=== PATIENT | male | born 1985 | race American Indian/Alaskan Native ===

== ENCOUNTER 2017-06-09 22:33 | Emergency (ER) | payer SELFPAY ==
[2017-06-10] MEDS ORDERED: TORADOL IM ONE (00:01)
--- NOTE | 2017-06-10 00:01 | Emergency Department Report ---
HPI - General Chief Complaint: Dental/Oral Time Seen by Provider: 06/09/17 23:30 - HPI HPI: Patient here for toothache to his right upper back tooth 10 out of 10. He said this is been going on for 2 days. He said he called his dentist and he has an appointment for 06/24/2017. Patient said pain is 10 out of 10 and throbbing in and he's tried Tylenol 3 and Motrin which did not help his pain. He said his upper right back tooth has a cavity and a whole and he just couldn't take the pain anymore so he drove himself to the emergency room. Patient with blood pressure of 155/101 and he denies any history of 5 blood pressure. Denies any sore throat or drooling. Denies any nasal congestion, cough or shortness of breath. Denies any fever or chills. ED Past Medical Hx - Past Medical History Previous Medical History?: No - Surgical History Past Surgical History?: No - Family History Family history: hypertension - Social History Smoking Status: Never Smoker Substance Use Type: None Other Social History: single - Medications Home Medications: Home Medications Medication Instructions Recorded Confirmed Last Taken Type predniSONE [Deltasone] 40 mg PO QDAY #8 tab 12/15/15 Unknown Rx Clindamycin [Clindamycin CAP] 300 mg PO Q8H #30 cap 06/10/17 Unknown Rx HYDROcodone/APAP 5-325 [[place] 1 each PO Q6HR PRN #16 tablet 06/10/17 Unknown Rx 5/325] Ibuprofen [Motrin 600 MG tab] 600 mg PO Q8H PRN #20 tablet 06/10/17 Unknown Rx ED Review of Systems ROS: Stated complaint: TOOTHACHE Other details as noted in HPI Comment: All other systems reviewed and negative Constitutional: denies: chills, fever ENT: dental pain. denies: ear pain, throat pain, hearing loss, congestion Respiratory: no symptoms reported Cardiovascular: denies: chest pain, palpitations, edema, syncope Gastrointestinal: denies: nausea, vomiting Musculoskeletal: denies: back pain, joint swelling, arthralgia, myalgia Skin: denies: rash, lesions Neurological: denies: headache, weakness, numbness, paresthesias Physical Exam - Physical Exam Vital Signs: Vital Signs 06/09/17 22:38 Temperature 98.7 F Pulse Rate 108 H Respiratory 20 Rate Blood Pressure 155/101 O2 Sat by Pulse 98 Oximetry Vital Signs 06/09/17 06/10/17 06/10/17 22:38 00:10 00:21 Temperature 98.7 F Pulse Rate 108 H 79 Respiratory 20 18 18 Rate Blood Pressure 155/101 Blood Pressure 138/86 [Left] O2 Sat by Pulse 98 98 Oximetry General: This is a 31-year-old male well-nourished well-developed in no acute distress Physical Exam: Head: Normocephalic atraumatic Ears:BIateral TM pearly helms .bilateral EAC without redness swelling or drainage .no mastoid bone tenderness. Mouth: Moist, no pharyngeal erythema or exudate . UVULA midline and oral airways patent. No facial swelling. Tongue is normal. Patient with multiple dental caries. Patient with dental tenderness surrounding tooth #1 with cavity and tenderness is partially fractured without any open exposure. No induration noted. Neck: Nontender to palpate, supple, normal range of motion. No adenopathy. No c- spine tenderness. Nose: Bilateral nasal mucosa normal exam maxillary and frontal sinuses nontender to palpate. Eyes: Sclerae and conjunctiva without injection. Bilateral pupils equal and reactive to light. Bilateral lids are normal. Normal accommodation.BEOMI Lungs: Clear to auscultate bilaterally, no rhonchi wheezes or rales. Normal work of breathing and no chest wall tenderness CV: S1, S2. Tachycardic at 108 .elevated blood pressure. Regular rhythm, negative murmur. C Skin: Clean dry and intact, no rashes or lesions Psych: Normal mood and behavior ED Course Vital Signs 06/09/17 22:38 Temperature 98.7 F Pulse Rate 108 H Respiratory 20 Rate Blood Pressure 155/101 O2 Sat by Pulse 98 Oximetry Vital Signs 06/09/17 06/10/17 06/10/17 22:38 00:10 00:21 Temperature 98.7 F Pulse Rate 108 H 79 Respiratory 20 18 18 Rate Blood Pressure 155/101 Blood Pressure 138/86 [Left] O2 Sat by Pulse 98 98 Oximetry - Reevaluation(s) Reevaluation #1: 06/10/17 00:31 Patient given Toradol 60 mg IM in emergency room for toothache. ED Medical Decision Making - Medical Decision Making ED course: Patient here for toothache to his left upper back tooth #1 with dental tenderness around tooth #1. Fracture to tooth #1 and patient will multiple cavities. Patient has appointment with his dentist on 06/24/2017 and needs tried pain medication at home that did not help. I discussed the patient diagnosis and treatment plan. Vital signs stabilized. He was given Toradol 60 mg IM in emergency room to help with pain became he drove himself to the emergency room. Patient encouraged to keep dental appointment and I will place him on antibiotic and pain medication. Assessment/plan 1. Toothache 2. Tooth fracture, closed 3. Oral cellulitis 4. Dental caries Patient discharged home a prescription for Hemet, Motrin and clindamycin and instructed to follow-up with his dentist and keep appointment for 06/24 2017. Critical care attestation.: If time is entered above; I have spent that time in minutes in the direct care of this critically ill patient, excluding procedure time. ED Disposition Clinical Impression: Dental caries, Oral cellulitis, Tooth ache Fracture, tooth Qualifiers: Encounter type: initial encounter Fracture type: closed Qualified Code(s): S02.5XXA - Fracture of tooth (traumatic), initial encounter for closed fracture Disposition: DC-01 TO HOME OR SELFCARE Is pt being admited?: No Does the pt Need Aspirin: No Condition: Stable Instructions: Dental Caries (ED), Toothache (ED), Cellulitis (ED) Additional Instructions: Please keep appointment with a dentist for 06/24/2017 Please take antibiotic as scheduled Please do not drive or operate heavy machinery while taking Hemet as this medication will cause drowsiness Please remember to floss at least twice daily Prescriptions: Clindamycin [Clindamycin CAP] 300 mg PO Q8H #30 cap HYDROcodone/APAP 5-325 [Hemet 5/325] 1 each PO Q6HR PRN #16 tablet PRN Reason: Pain Ibuprofen [Motrin 600 MG tab] 600 mg PO Q8H PRN #20 tablet PRN Reason: Pain Referrals: Your, Dentist [Other] - 3-5 Days [facility] [Outside] - 3-5 Days Forms: Work/School Release Form(ED)
[2017-06-10 00:22] VITALS: BP 138/86
== END 2017-06-10 00:55 | disposition home or self-care (01) ==
LOC: ED 22:33
DX: K12.2 Cellulitis and abscess of mouth (principal); S02.5XXA Fracture of tooth (traumatic), initial encounter for closed fracture; X58.XXXA Exposure to other specified factors, initial encounter; Y93.9 Activity, unspecified; Y92.89 Other specified places as the place of occurrence of the external cause; Y99.8 Other external cause status
CPT/HCPCS: 96372; 99282; J1885

== ENCOUNTER 2019-09-21 11:27 | Emergency (ER) | payer SELFPAY ==
[2019-09-21 12:01] VITALS: BP 143/95
--- NOTE | 2019-09-21 12:01 | Event Note ---
ED Screening Note Date of service: 09/21/19 Time: 11:59 ED Screening Note: 34 y o male presents with generalized hives with some trouble swallowing when he woke up this am took a benadryl wityh no relief cc of generalized unsure of contact This initial assessment/diagnostic orders/clinical plan/treatment(s) is/are subject to change based on patients health status, clinical progression and re- assessment by fellow clinical providers in the ED. Further treatment and workup at subsequent clinical providers discretion. Patient/guardian urged not to elope from the ED as their condition may be serious if not clinically assessed and managed. Initial orders include: IM or IV steroids IVF
[2019-09-21] MEDS ORDERED: diphenhydrAMINE 50 MG/ML VIAL IV ONE (15:05)
[2019-09-21] MEDS ORDERED: dexAMETHasone 20 MG/5 ML VIAL IV ONE (15:05)
[2019-09-21] MEDS ORDERED: FAMOTIDINE 20 MG/2 ML INJ IV ONE (15:05)
--- NOTE | 2019-09-21 15:24 | Emergency Department Report ---
HPI - General Chief Complaint: Allergic Reaction Time Seen by Provider: 09/21/19 15:22 ED Past Medical Hx - Past Medical History Previous Medical History?: No - Surgical History Past Surgical History?: No - Social History Smoking Status: Never Smoker Substance Use Type: Alcohol - Medications Home Medications: Home Medications Medication Instructions Recorded Confirmed Last Taken Type predniSONE [Deltasone] 40 mg PO QDAY #8 tab 12/15/15 Unknown Rx Clindamycin [Clindamycin CAP] 300 mg PO Q8H #30 cap 06/10/17 Unknown Rx HYDROcodone/APAP 5-325 [[place] 1 each PO Q6HR PRN #16 tablet 06/10/17 Unknown Rx 5/325] Ibuprofen [Motrin 600 MG tab] 600 mg PO Q8H PRN #20 tablet 06/10/17 Unknown Rx ED Review of Systems ROS: Stated complaint: POSS ALLERGIC REACTION Other details as noted in HPI Comment: All other systems reviewed and negative Skin: pruritus, other (hives) Physical Exam - Physical Exam Vital Signs: Vital Signs 09/21/19 11:58 Temperature 98.2 F Pulse Rate 109 H Respiratory 20 Rate Blood Pressure 143/95 O2 Sat by Pulse 95 Oximetry General: This is a 34-year-old male is complaining of itching and rash was started this morning. He admits to an allergy to garlic. Upon further questioning patient states that he purchased new laundry detergent 2 days ago. He is now on examination he has hives on his forehead on his scalp and on his shoulder. His airway is patent no postpharyngeal edema there is no drooling is no tongue swelling and no lip swelling. ED Course Vital Signs 09/21/19 11:58 Temperature 98.2 F Pulse Rate 109 H Respiratory 20 Rate Blood Pressure 143/95 O2 Sat by Pulse 95 Oximetry Critical care attestation.: If time is entered above; I have spent that time in minutes in the direct care of this critically ill patient, excluding procedure time. ED Disposition Condition: Stable
--- NOTE | 2019-09-21 15:35 | Emergency Department Report ---
ED General Adult HPI - General Chief complaint: Allergic Reaction Stated complaint: POSS ALLERGIC REACTION Time Seen by Provider: 09/21/19 15:22 Source: patient Mode of arrival: Ambulatory Limitations: No Limitations - History of Present Illness -: Sudden Location: head, face, back, upper extremity Consistency: constant Associated Symptoms: other (itching) Treatments Prior to Arrival: other (1 benadryl tab this morning) - Related Data Previous Rx's Medication Instructions Recorded Last Taken Type predniSONE [Deltasone] 40 mg PO QDAY #8 tab 12/15/15 Unknown Rx Clindamycin [Clindamycin CAP] 300 mg PO Q8H #30 cap 06/10/17 Unknown Rx HYDROcodone/APAP 5-325 [[place] 1 each PO Q6HR PRN #16 tablet 06/10/17 Unknown Rx 5/325] Ibuprofen [Motrin 600 MG tab] 600 mg PO Q8H PRN #20 tablet 06/10/17 Unknown Rx Famotidine [Pepcid] 20 mg PO BID 3 Days #6 tablet 09/21/19 Unknown Rx predniSONE [Deltasone] 40 mg PO DAILY 3 Days #6 tablet 09/21/19 Unknown Rx Allergies Allergy/AdvReac Type Severity Reaction Status Date / Time garlic AdvReac LIPS TINGLE Verified 09/21/19 11:31 ED Review of Systems ROS: Stated complaint: POSS ALLERGIC REACTION Other details as noted in HPI Comment: All other systems reviewed and negative Skin: other (hives) ED Past Medical Hx - Past Medical History Previous Medical History?: No - Surgical History Past Surgical History?: No - Social History Smoking Status: Never Smoker Substance Use Type: Alcohol - Medications Home Medications: Home Medications Medication Instructions Recorded Confirmed Last Taken Type predniSONE [Deltasone] 40 mg PO QDAY #8 tab 12/15/15 Unknown Rx Clindamycin [Clindamycin CAP] 300 mg PO Q8H #30 cap 06/10/17 Unknown Rx HYDROcodone/APAP 5-325 [[place] 1 each PO Q6HR PRN #16 tablet 06/10/17 Unknown Rx 5/325] Ibuprofen [Motrin 600 MG tab] 600 mg PO Q8H PRN #20 tablet 06/10/17 Unknown Rx Famotidine [Pepcid] 20 mg PO BID 3 Days #6 tablet 09/21/19 Unknown Rx predniSONE [Deltasone] 40 mg PO DAILY 3 Days #6 tablet 09/21/19 Unknown Rx ED Physical Exam - General Limitations: No Limitations - Head Head exam: Present: atraumatic, other (hives) - Eye Eye exam: Present: normal appearance - ENT ENT exam: Present: normal orophraynx, TM's normal bilaterally, other (no posterior pharyngeal edema) - Neck Neck exam: Present: normal inspection, full ROM - Respiratory Respiratory exam: Present: normal lung sounds bilaterally. Absent: wheezes - Cardiovascular Cardiovascular Exam: Present: regular rate, normal rhythm - Extremities Exam Extremities exam: Present: normal inspection - Neurological Exam Neurological exam: Present: alert, oriented X3 - Skin Skin exam: Present: warm, dry, intact, rash (scattered hives to forehead, posterior scalp shoulder and upper back), erythema ED Course Vital Signs 09/21/19 11:58 Temperature 98.2 F Pulse Rate 109 H Respiratory 20 Rate Blood Pressure 143/95 O2 Sat by Pulse 95 Oximetry ED Medical Decision Making - Medical Decision Making This 34-year-old male who presents to the ED complaining of itchy rash that started suddenly this morning. He reports a history of being allergic to garlic. He reports no recent use or contact with garlic. Patient does recall using a new laundry detergent 2 days ago and is currently wearing clothing that was washed with the new detergent. He took 1 dose of benadryl this morning with no improvment. He denies nausea vomiting diarrhea fever and chills. On examination patient has large hives on his forehead back of his head his back and right shoulder. His airway is patent no post-pharyngeal edema and no drooling, swelling. or lip swelling. Critical care attestation.: If time is entered above; I have spent that time in minutes in the direct care of this critically ill patient, excluding procedure time. ED Disposition Clinical Impression: Allergic reaction Disposition: DC-01 TO HOME OR SELFCARE Is pt being admited?: No Does the pt Need Aspirin: No Additional Instructions: Stop using new laundry detergent. Follow up with PCP IN 2-3 days or at [facility]. Return to the ER immediately for any worsening symptoms. Take prednisone as prescribed. Take Benadryl 50 mg q 4 prn itching. Prescriptions: predniSONE [Deltasone] 40 mg PO DAILY 3 Days #6 tablet Famotidine [Pepcid] 20 mg PO BID 3 Days #6 tablet
== END 2019-09-21 16:35 | disposition home or self-care (01) ==
LOC: ED 11:27
DX: T78.40XA Allergy, unspecified, initial encounter (principal); Z91.018 Allergy to other foods; Z79.1 Long term (current) use of non-steroidal anti-inflammatories (NSAID); Z79.899 Other long term (current) drug therapy; X58.XXXA Exposure to other specified factors, initial encounter
CPT/HCPCS: 96374; 96375; 99282; J1100; J1200

== ENCOUNTER 2019-10-30 02:32 | Emergency (ER) | payer SELFPAY ==
[2019-10-30] MEDS ORDERED: ONDANSETRON 4 MG ODT TAB PO ONE (02:42)
[2019-10-30] MEDS ORDERED: FAMOTIDINE 20 MG TAB PO ONE (02:42)
[2019-10-30] MEDS ORDERED: SODIUM CHLORIDE 0.9% 1000 ML 1,000 ML IV ONE (02:54)
[2019-10-30] MEDS ORDERED: KETOROLAC 30 MG/1 ML INJ IV ONE (02:54)
--- NOTE | 2019-10-30 03:20 | XRay Report ---
CHEST PA AND LATERAL VIEWS INDICATION: copugh. COMPARISON: 10/11/2018 FINDINGS: Support devices: None Heart: Normal and unchanged Lungs/Pleura: No acute pulmonary or pleural findings. IMPRESSION: 1. No active disease and no interval change. Signer Name: Manny Freedman MD Signed: 10/30/2019 3:16 AM Workstation Name: [id number]
--- NOTE | 2019-10-30 03:33 | Emergency Department Report ---
HPI - General Chief Complaint: Allergic Reaction Time Seen by Provider: 10/30/19 02:41 - HPI HPI: Patient is a 34-year-old -[place] male who is presented with a possible allergic reaction. Patient has no past medical history. Patient states yest erday he began having a mild cough with body aches. Patient states he was aching in his arms and legs. Cough is nonproductive. Patient states that tonight he was at work and started having some itching in looked in the mirror and saw that he had hives on his neck and face and shoulders. Paramedics were called and the patient was given 50 mg of Benadryl IM. Patient states the hives are starting to resolve. Patient denies diarrhea or sore throat or neck stiffness. Patient does state that he has had some posttussive emesis over the last 2 days. ED Past Medical Hx - Past Medical History Previous Medical History?: No - Surgical History Past Surgical History?: No - Social History Smoking Status: Never Smoker Substance Use Type: Alcohol - Medications Home Medications: Home Medications Medication Instructions Recorded Confirmed Last Taken Type predniSONE [Deltasone] 40 mg PO QDAY #8 tab 12/15/15 Unknown Rx Clindamycin [Clindamycin CAP] 300 mg PO Q8H #30 cap 06/10/17 Unknown Rx HYDROcodone/APAP 5-325 [[place] 1 each PO Q6HR PRN #16 tablet 06/10/17 Unknown Rx 5/325] Ibuprofen [Motrin 600 MG tab] 600 mg PO Q8H PRN #20 tablet 06/10/17 Unknown Rx Famotidine [Pepcid] 20 mg PO BID 3 Days #6 tablet 09/21/19 Unknown Rx predniSONE [Deltasone] 40 mg PO DAILY 3 Days #6 tablet 09/21/19 Unknown Rx ALBUTEROL Inhaler (OR & NICU) 2 puff IH QID PRN #1 inhalation 10/30/19 Unknown Rx [ProAir HFA Inhaler] Fluticasone [Flonase] 1 spray NS QDAY #1 bottle 10/30/19 Unknown Rx Ibuprofen [Motrin 800 MG tab] 800 mg PO Q8HR PRN #10 tablet 10/30/19 Unknown Rx Ondansetron [Zofran Odt] 4 mg PO Q8HR #10 tab.rapdis 10/30/19 Unknown Rx diphenhydrAMINE [Benadryl CAP] 25 mg PO Q6HR PRN #12 capsule 10/30/19 Unknown Rx predniSONE [Deltasone] 20 mg PO QDAY #5 tab 10/30/19 Unknown Rx traMADoL [Ultram] 50 mg PO Q6HR PRN #12 tablet 10/30/19 Unknown Rx ED Review of Systems ROS: Stated complaint: ALLERGIC REACTION Other details as noted in HPI Comment: All other systems reviewed and negative Physical Exam - Physical Exam Vital Signs: Vital Signs 10/30/19 10/30/19 02:55 02:58 Temperature 100.6 F H Pulse Rate 138 H Respiratory 26 H Rate Blood Pressure 126/75 O2 Sat by Pulse 94 95 Oximetry General: There is alert and oriented 3. Skin exam shows he has does have some small hives on his neck. Lungs clear to auscultation. Heart tones are within normal limits however his rate is tachycardic. Abdomen soft nontender. Patient moving all extremities spontaneously with good strength. Neck is showing no rigidity ED Course Vital Signs 10/30/19 10/30/19 02:55 02:58 Temperature 100.6 F H Pulse Rate 138 H Respiratory 26 H Rate Blood Pressure 126/75 O2 Sat by Pulse 94 95 Oximetry ED Medical Decision Making - Medical Decision Making Patient likely with a flulike illness. Patient also with hives. Has could be secondary to a viral exanthem however allergic reaction cannot be ruled out. Patient given medications for allergic reaction and patient will be discharged home with medication for symptomatically. Critical care attestation.: If time is entered above; I have spent that time in minutes in the direct care of this critically ill patient, excluding procedure time. ED Disposition Clinical Impression: Allergic urticaria, Flu-like symptoms Disposition: DC-01 TO HOME OR SELFCARE Is pt being admited?: No Does the pt Need Aspirin: No Condition: Stable Instructions: Influenza (ED), Urticaria (ED), Viral Exanthem (ED) Time of Disposition: 04:43
[2019-10-30] MEDS ORDERED: diphenhydrAMINE 50 MG/ML VIAL IV ONE (03:54)
[2019-10-30] MEDS ORDERED: dexAMETHasone 20 MG/5 ML VIAL IV ONE (03:54)
[2019-10-30 05:59] VITALS: BP 125/77
== END 2019-10-30 05:10 | disposition home or self-care (01) ==
LOC: ED 02:32
DX: L50.0 Allergic urticaria (principal); Z79.899 Other long term (current) drug therapy; Z91.018 Allergy to other foods
CPT/HCPCS: 71046; 96374; 96375; 99284; J1100; J1200; J1885; J7030; 96361; Q0162

== ENCOUNTER 2022-05-24 10:57 | Emergency (ER) | payer SELFPAY ==
[2022-05-24 11:37] VITALS: BP 161/104
== END 2022-05-24 15:41 | disposition left against medical advice (07) ==
LOC: ED 10:57
DX: Z20.2 Contact with and (suspected) exposure to infections with a predominantly sexual mode of transmission (principal); Z53.21 Procedure and treatment not carried out due to patient leaving prior to being seen by health care provider